=== PATIENT | female | born 1965 | race Caucasian/White ===

== ENCOUNTER 2023-06-29 10:07 | Emergency (ER) | payer OTHER, SELFPAY ==
[2023-06-29 10:31] VITALS: BP 135/76; PULSE 96; RESP 16; TEMP 37.1; O2SAT 98
--- NOTE | 2023-06-29 10:37 | ED.GENADULT ---
HPI - General Adult General Chief complaint: Upper Respiratory Infection Stated complaint: Cough Source: patient, RN notes reviewed and old records reviewed Mode of arrival: ambulatory Limitations: no limitations History of Present Illness HPI narrative: 57-year-old female presents to [facility] with complaints of cough, congestion, ear pressure, and myalgia that started over 1 week ago. Patient states has yellow nasal discharge. Patient taking [id number] medications with no relief. Patient denies chest pain, shortness of breath, dizziness, vomiting, fever. Related Data Home Medications Medication Instructions Recorded Confirmed metoprolol succinate 100 mg 50 mg PO DAILY 06/29/23 06/29/23 tablet,extended release 24 hr progesterone micronized 200 mg 200 mg PO DAILY 06/29/23 06/29/23 capsule sertraline 25 mg tablet 25 mg PO DAILY 06/29/23 06/29/23 thyroid (pork) 60 mg tablet 60 mg PO DAILY 06/29/23 06/29/23 ([place] Thyroid) Allergies Allergy/AdvReac Type Severity Reaction Status Date / Time sulfamethoxazole AdvReac Intermediate GI UPSET Verified 06/29/23 10:29 trimethoprim AdvReac Intermediate GI UPSET Verified 06/29/23 10:29 Review of Systems Constitutional: Constitutional: Reports no additional constitutional complaints, Reports body ache(s), Denies chills, Denies fatigue, Denies fever(s) and Denies headache(s) Eyes: Eyes: Reports no additional eye complaints and Denies blurry vision ENT: Reports system reviewed and no additional complaints, except as documented, Denies vertigo, Denies dizziness, Denies ear discharge, Reports otalgia, Denies facial pain, Denies headache(s), Reports nasal congestion, Reports nasal discharge, Reports sinus pain, Reports sinus pressure and Denies sore throat Cardiovascular: Cardiovascular: Reports no additional cardiovascular complaints, Denies chest pain, Denies chest pain at rest, Denies rapid heart rate and Denies dyspnea Respiratory: Respiratory: Reports no additional respiratory complaints, Denies chest congestion, Reports cough, Denies pain on inspiration, Denies pain with cough and Denies dyspnea Gastrointestinal: Gastrointestinal: Denies abdominal pain, Denies diarrhea, Denies nausea and Denies vomiting Integumentary/Breasts: Skin/Breast: Denies rash Neurologic: Reports system reviewed and no additional complaints, except as documented, Denies vertigo, Denies dizziness and Denies headache(s) Endocrine: Endocrine: Denies fatigue PMFSH Comments At the time of my signature, I reviewed and agree with the nursing past medical, surgical, social, and family history. There is no relevant family history pertinent to the patient complaint. Exam Const: General: cooperative, healthy appearing, no acute distress and well nourished Nutritional Appearance: well nourished Orientation/consciousness: patient oriented x3 Limitations: no limitations HENMT: Head: normal to inspection and normocephalic Ears: external ears normal, TM's normal bilaterally, EAC's normal and mastoids normal Face/Nose/Sinus: normal facial exam and sinus tenderness Face and sinus: normal facial exam Mouth: Yes Normal oral and palatal mucosa present, Yes oropharynx normal and Yes moist mucous membranes Throat: tonsils normal, uvula midline, normal tonsils, no peritonsillar masses, posterior oropharynx abnormal erythema, postnasal drainage and no uvular edema Eyes: General: appearance normal, both eyes and all related structures Sclera: sclerae normal Pupils: Equal, round and reactive pupils present Resp: Effort & Inspection: normal respiratory effort, able to speak in complete sentences, no audible wheezes, no cough, no respiratory distress and no retractions Auscultation: clear to auscultation bilaterally, no crackles, no rales, no rhonchi and no wheezes Cardio: Rate: regular rate Rhythm: regular rhythm Skin: General skin exam: normal color and no rashes or lesions noted Neuro: General: alondra
== END 2023-06-29 10:50 | disposition home or self-care (01) ==
PROVIDERS: Emergency Provider Registered Nurse; PCP Physician Assistant
DX: J01.90 Acute sinusitis, unspecified (principal); Z20.822 Contact with and (suspected) exposure to COVID-19; E78.00 Pure hypercholesterolemia, unspecified
CPT/HCPCS: 87426; 87804; 99213; G0463

== ENCOUNTER 2023-08-21 19:01 | Emergency (ER) | payer OTHER, SELFPAY ==
[2023-08-21 19:14] VITALS: BP 149/104; PULSE 115; RESP 18; TEMP 36.2; O2SAT 97
[2023-08-21 19:17] VITALS: BP 149/104; PULSE 115; RESP 18; TEMP 36.2; O2SAT 97
--- NOTE | 2023-08-21 19:37 | ED.URI ---
HPI - URI/Sore Throat General Chief Complaint: Upper Respiratory Infection Stated Complaint: cough,congestion Source: patient and family Mode of arrival: ambulatory Limitations: no limitations History of Present Illness HPI Narrative: 57-year-old female presents to [facility] with complaints of body aches, headache, nausea decreased appetite and harsh cough for the past 4-5 days. Patient reports that she recently traveled and numerous people were ill at that time. Patient takes Ira Claritin daily. Patient also has been taking [id number] Mucinex with minimal relief. Patient is nonsmoker. Patient denies nausea vomiting, diarrhea or wheezing MD elicited complaint: cough, rhinorrhea and nasal congestion Onset (ago): day(s) (4) Exacerbating factors: nothing Relieving factors: nothing Context: recent travel Treatments prior to arrival: cold medicine Related Data Home Medications Medication Instructions Recorded Confirmed metoprolol succinate 100 mg 50 mg PO DAILY 06/29/23 08/21/23 tablet,extended release 24 hr progesterone micronized 200 mg 200 mg PO DAILY 06/29/23 08/21/23 capsule sertraline 25 mg tablet 25 mg PO DAILY 06/29/23 08/21/23 thyroid (pork) 60 mg tablet 60 mg PO DAILY 06/29/23 08/21/23 ([place] Thyroid) ascorbate calcium (vitamin C) 500 500 mg PO DAILY 08/21/23 08/21/23 mg tablet cholecalciferol (vitamin D3) 50 50 mcg PO DAILY 08/21/23 08/21/23 mcg (2,000 unit) tablet elderberry fruit 200 mg capsule 200 mg PO DAILY 08/21/23 08/21/23 Allergies Allergy/AdvReac Type Severity Reaction Status Date / Time sulfamethoxazole AdvReac Intermediate GI UPSET Verified 08/21/23 19:15 trimethoprim AdvReac Intermediate GI UPSET Verified 08/21/23 19:15 Review of Systems Constitutional: Constitutional: Reports chills, Reports fatigue, Denies fever(s) and Denies weakness ENT: Denies dizziness, Denies epistaxis, Reports nasal congestion and Reports sore throat Respiratory: Respiratory: Reports cough, Denies dyspnea and Denies wheezing Gastrointestinal: Gastrointestinal: Denies diarrhea, Denies nausea and Denies vomiting Musculoskeletal: Musculoskeletal: Denies arthralgias Integumentary/Breasts: Skin/Breast: Denies erythema and Denies rash Neurologic: Denies dizziness, Denies syncope and Denies headache(s) PMFSH Comments At time of signature, I agree with nursing past medical, surgical, social and family history. There is no relevant family history pertinent to the presenting complaint. Exam Const: General: healthy appearing and no acute distress Nutritional Appearance: well nourished Orientation/consciousness: patient oriented x3 Limitations: no limitations HENMT: Head: normal to inspection Ears: external ears normal and TM's normal bilaterally Face and sinus: normal facial exam Mouth: Yes Normal oral and palatal mucosa present and Yes moist mucous membranes Teeth and gingiva: dentition normal Throat: posterior oropharynx normal and uvula midline Other: Moderate nasal congestion noted Eyes: Conjunctivae: conjunctivae normal Neck: Neck: normal visual inspection Resp: Effort & Inspection: normal respiratory effort and not labored Auscultation: clear to auscultation bilaterally, no crackles, no rales, no rhonchi and no wheezes Cardio: Rate: regular rate Rhythm: regular rhythm Heart sounds: no murmurs Skin: General skin exam: normal color Neuro: Speech: normal speech Gait exam (Neuro): Normal gait present Psych: Affect: normal affect Attitude: cooperative Course Course Level of Care: Express Care Visit Vital Signs Vital signs: Vital Signs Temperature 36.2 C L 08/21/23 19:14 Pulse Rate 115 H 08/21/23 19:14 Respiratory Rate 18 08/21/23 19:14 Blood Pressure 149/104 H 08/21/23 19:14 Pulse Oximetry 97 08/21/23 19:14 Oxygen Delivery Room Air 08/21/23 19:14 Temperature 36.2 C L 08/21/23 19:17 Pulse Rate 112 H 08/21/23 19:44 Respiratory Rat
[2023-08-21 19:44] VITALS: BP 152/98; PULSE 112; RESP 18; O2SAT 97
== END 2023-08-21 19:48 | disposition home or self-care (01) ==
PROVIDERS: Emergency Provider Nurse Practitioner Family; PCP Physician Assistant
DX: U07.1 COVID-19 (principal); E78.00 Pure hypercholesterolemia, unspecified
CPT/HCPCS: 87426; 87804; 99213; G0463